=== PATIENT | female | born 1955 | race Caucasian/White ===

== ENCOUNTER 2019-03-23 12:20 | Day surgery (SDC) | payer OTHER ==
[~2019-03-23] VITALS: Ht 157.5 cm; Wt 72.6 kg
[~2019-03-23 12:20] MED LIST: calcium PO; glucosamine PO; naproxen PO; vitamin d PO
[2019-03-23 13:57] VITALS: Ht 157.5 cm; Wt 72.6 kg
[2019-03-23] MEDS ORDERED: METOPROLOL (14:03)
[2019-03-23] MEDS ORDERED: VITAMIN E (14:03)
[2019-03-23] MEDS ORDERED: SIMVASTATIN (14:03)
--- NOTE | 2019-03-23 15:08 | PREAC ---
Date/Time of Note Date/Time of Note DATE: 03/23/19 TIME: 15:06 Anesthesia Eval and Record Evaluation Time Pre-Procedure Interview DATE: 03/23/19 TIME: 15:06 Age 63 Sex female NPO: 8 hrs Preoperative diagnosis colon screening Planned procedure colonoscopy Past Medical History Past Medical History: Includes Cardio: HTN, Dyslipidemia Heme: Anemia Surgery & Anesthesia Issues No known issue Meds Anticoagulation: No Beta Maame within 24 hr: No Reason Beta Maame not given: Pt. not on B-Maame Reported Medications [Metoprolol] No Conflict Check 03/23/19 [Simvastatin] No Conflict Check 03/23/19 [Vitamin E] No Conflict Check 03/23/19 [vitamin d] No Conflict Check, PO DAILY 12/30/13 Discontinued Reported Medications [naproxen] No Conflict Check, PO DAILY 12/30/13 [glucosamine] No Conflict Check, PO DAILY 12/30/13 [calcium] No Conflict Check, PO DAILY 12/30/13 Meds reviewed: Yes Allergies Coded Allergies: No Known Allergy (Unverified , 03/23/19) Allergies Reviewed: Yes Labs/Studies Labs Reviewed: Other (NA) test: N/A Pre-procedure Exam Airway: Adequate mouth opening Mallampati: Mallampati II Teeth: Normal Lung: Normal Heart: Normal ASA Physical Status ASA physical status: 2 Emergency: None Planned Anesthetic General/MAC: MAC Pre-operative Attestations Prior to commencing anesthesia and surgery, the patient was re-evaluated, there was verification of: *The patient's identity *The results of appropriate recent lab work and preoperative vital signs *The above evaluation not changing prior to induction *Anesthetic plan, risk benefits, alternative and complications discussed with patient/family; questions answered; patient/family understands, accepts and wishes to proceed. KAI DELEON Mar 23, 2019 15:08
[2019-03-23 15:30] VITALS: BP 129/63; PULSE 68; RESP 24
[2019-03-23] MEDS ORDERED: PROPOFOL 40 ML ONE (15:49)
--- NOTE | 2019-03-23 15:51 | PAC ---
Date/Time of Note Date/Time of Note DATE: 03/23/19 TIME: 15:51 Post-Anesthesia Notes Post-Anesthesia Note Last documented vital signs Vital Signs Date Temp Pulse Resp B/P (MAP) Pulse Ox O2 O2 Flow FiO2 Time Delivery Rate 03/23/19 97.5 68 24 129/63 100 Room Air 15:50 (85) Activity: WNL Respiratory function: WNL Cardiovascular function: WNL Mental status: Baseline Pain reasonably controlled: Yes Hydration appropriate: Yes Nausea/Vomiting absent: Yes STANLEY PALAFOX MD Mar 23, 2019 15:51
[2019-03-23 16:15] VITALS: BP 126/75; RESP 20
== END 2019-03-23 19:26 | disposition home or self-care (01) ==
LOC: GIL 12:20
PROVIDERS: ATTEND Internal Medicine Gastroenterology
DX: Z12.11 Encounter for screening for malignant neoplasm of colon (principal); D12.8 Benign neoplasm of rectum; K64.8 Other hemorrhoids; I10 Essential (primary) hypertension; E78.5 Hyperlipidemia, unspecified
CPT/HCPCS: 45380; 88305; Z7610